=== PATIENT | male | born 1945 | race Caucasian/White ===

== ENCOUNTER → 2020-05-04 | Outpatient (CLI) | payer MEDICARE | END | disposition home or self-care (01) | LOC: LAB SHORT 13:39 → LAB 13:39 | DX: L02.91 Cutaneous abscess, unspecified (principal) | CPT/HCPCS: 87070; 87075; 87076; 87185; 87205 ==

== ENCOUNTER 2022-04-23 08:47 | Emergency (ER) | payer MEDICARE ==
[~2022-04-23] VITALS: Ht 182.9 cm; Wt 140.6 kg
[2022-04-23 10:16] LABS: BASOPHILS ABSOLUTE AUTO 0.06 K/mm3 (0.00-0.23); BASOPHILS PERCENT AUTO 1 % (0-2); EOSINOPHILS ABSOLUTE AUTO 0.19 K/mm3 (0.00-0.68); EOSINOPHILS PERCENT AUTO 3 % (0-6); Hematocrit 33.9 % (37.0-53.0); Hemoglobin 10.6 g/dL (13.5-17.5); IMMATURE GRAN ABSOLUTE AUTO 0.04 K/mm3 (0.00-0.10); IMMATURE GRAN PERCENT AUTO 1 % (0-1); LYMPHOCYTES ABSOLUTE AUTO 0.75 K/mm3 (0.84-5.20); LYMPHOCYTES PERCENT AUTO 11 % (21-46); MONOCYTES ABSOLUTE AUTO 0.42 K/mm3 (0.16-1.47); MONOCYTES PERCENT AUTO 6 % (4-13); Mean Corpuscular HGB Conc 31.3 g/dL (31.5-36.5); Mean Corpuscular Volume 99 fL (80-100); Mean Platelet Volume 10.9 fL (9.1-12.4); NEUTROPHILS ABSOLUTE AUTO 5.39 K/mm3 (1.96-9.15); NEUTROPHILS PERCENT AUTO 79 % (41-73); Platelet Count 267 K/mm3 (150-400); RDW Coefficient Variation 13.4 % (11.7-14.2); RDW Standard Deviation 48.4 fL (35.1-46.3); Red Blood Cell Count 3.42 M/mm3 (4.30-5.90); White Blood Cell Count 6.85 K/mm3 (4.00-11.30)
[2022-04-23 10:44] LABS: Albumin, Blood 3.4 g/dL (3.4-5.0); Albumin/Globulin Ratio 1.1 (0.8-1.8); Bilirubin, Total 0.4 mg/dL (0.1-1.0); Bun/Creatinine Ratio 19.2 (12.0-20.0); Calcium, Blood 8.8 mg/dL (8.5-10.1); Creatinine, Blood 1.67 mg/dL (0.60-1.20); Globulin, Blood 3.2 g/dL (2.2-4.0); Potassium, Blood 5.3 mmol/L (3.5-5.5); Thyroid Stimulating Hormone 1.87 uIU/mL (0.360-4.800); Total Protein, Blood 6.6 g/dL (6.4-8.2)
[2022-04-23] MEDS ORDERED: METFORMIN HCL500 M3 PO (11:35)
[2022-04-23] MEDS ORDERED: SULFAMETHOXAZO1 EAC1 PO (11:36)
[2022-04-23] MEDS ORDERED: FUROSEMIDE40 MG PO (11:36)
[2022-04-23] MEDS ORDERED: POTASSIUM CHLORIDE E (11:36)
[2022-04-23] MEDS ORDERED: TAMSULOSIN HCL0.4 M1 PO (11:36)
[2022-04-23] MEDS ORDERED: GLIMEPIRIDE4 MG PO (11:36)
[2022-04-23] MEDS ORDERED: LOSA25 PO (11:37)
== END 2022-04-23 11:57 | disposition home or self-care (01) ==
LOC: ER 08:47
PROVIDERS: Emergency Medicine
DX: R06.09 Other forms of dyspnea (principal); R53.83 Other fatigue; I10 Essential (primary) hypertension; E11.9 Type 2 diabetes mellitus without complications; Z79.899 Other long term (current) drug therapy
CPT/HCPCS: 36415; 71045; 80053; 83880; 84443; 84484; 85025; 93005; 93010

== ENCOUNTER 2022-05-31 11:50 | Inpatient (IN) | payer MEDICARE ==
[~2022-05-31] VITALS: Ht 182.9 cm; Wt 145.1 kg
[~2022-05-31 11:50] MED LIST: FUROSEMIDE40 MG PO; GLIMEPIRIDE4 MG PO; K-Dur20 MEQ PO; LOSA50 PO; METF500 PO; SULFAMETHOXAZO1 EAC1 PO; TAMSULOSIN HCL0.4 M1 PO
[2022-05-31 12:49] LABS: BASOPHILS ABSOLUTE AUTO 0.07 K/mm3 (0.00-0.23); BASOPHILS PERCENT AUTO 1 % (0-2); EOSINOPHILS ABSOLUTE AUTO 0.23 K/mm3 (0.00-0.68); EOSINOPHILS PERCENT AUTO 4 % (0-6); Hematocrit 31.8 % (37.0-53.0); IMMATURE GRAN ABSOLUTE AUTO 0.03 K/mm3 (0.00-0.10); IMMATURE GRAN PERCENT AUTO 1 % (0-1); LYMPHOCYTES ABSOLUTE AUTO 0.75 K/mm3 (0.84-5.20); LYMPHOCYTES PERCENT AUTO 13 % (21-46); MONOCYTES ABSOLUTE AUTO 0.38 K/mm3 (0.16-1.47); MONOCYTES PERCENT AUTO 7 % (4-13); Mean Corpuscular HGB 31.6 pg (26.0-34.0); Mean Corpuscular HGB Conc 31.4 g/dL (31.5-36.5); Mean Corpuscular Volume 101 fL (80-100); Mean Platelet Volume 10.9 fL (9.1-12.4); NEUTROPHILS ABSOLUTE AUTO 4.32 K/mm3 (1.96-9.15); NEUTROPHILS PERCENT AUTO 75 % (41-73); Platelet Count 249 K/mm3 (150-400); RDW Coefficient Variation 15.4 % (11.7-14.2); RDW Standard Deviation 57.7 fL (35.1-46.3); Red Blood Cell Count 3.16 M/mm3 (4.30-5.90); White Blood Cell Count 5.78 K/mm3 (4.00-11.30)
[2022-05-31 13:10] LABS: Albumin, Blood 3.2 g/dL (3.4-5.0); Bilirubin, Total 0.4 mg/dL (0.1-1.0); Bun/Creatinine Ratio 21.7 (12.0-20.0); Calcium, Blood 8.5 mg/dL (8.5-10.1); Creatinine, Blood 1.15 mg/dL (0.60-1.20); Globulin, Blood 3.3 g/dL (2.2-4.0); Potassium, Blood 4.5 mmol/L (3.5-5.5); Total Protein, Blood 6.5 g/dL (6.4-8.2)
--- NOTE | 2022-06-01 02:43 | NUR ---
PT ARRIVED TO MEDICAL FLOOR BY ESCORT AT 2041. RA. SALINE LOCKED RAC. NO LLE WITH SWELLING AND EDEMA. SLIGHTLY WARM TO TOUCH. DENIES C/O PAIN. NO OTHER WOUNDS NOTED. A&Ox4. SELF-TRANSFERED TO BED. NO CONCERNS.
[2022-06-01 07:01] LABS: BASOPHILS ABSOLUTE AUTO 0.07 K/mm3 (0.00-0.23); BASOPHILS PERCENT AUTO 1 % (0-2); EOSINOPHILS ABSOLUTE AUTO 0.23 K/mm3 (0.00-0.68); EOSINOPHILS PERCENT AUTO 4 % (0-6); Hematocrit 30.2 % (37.0-53.0); Hemoglobin 9.5 g/dL (13.5-17.5); IMMATURE GRAN ABSOLUTE AUTO 0.01 K/mm3 (0.00-0.10); IMMATURE GRAN PERCENT AUTO 0 % (0-1); LYMPHOCYTES ABSOLUTE AUTO 0.95 K/mm3 (0.84-5.20); LYMPHOCYTES PERCENT AUTO 17 % (21-46); MONOCYTES ABSOLUTE AUTO 0.47 K/mm3 (0.16-1.47); MONOCYTES PERCENT AUTO 8 % (4-13); Mean Corpuscular HGB 31.3 pg (26.0-34.0); Mean Corpuscular HGB Conc 31.5 g/dL (31.5-36.5); Mean Corpuscular Volume 99 fL (80-100); Mean Platelet Volume 10.9 fL (9.1-12.4); NEUTROPHILS ABSOLUTE AUTO 4.01 K/mm3 (1.96-9.15); NEUTROPHILS PERCENT AUTO 70 % (41-73); Platelet Count 236 K/mm3 (150-400); RDW Coefficient Variation 15.2 % (11.7-14.2); RDW Standard Deviation 55.3 fL (35.1-46.3); Red Blood Cell Count 3.04 M/mm3 (4.30-5.90); White Blood Cell Count 5.74 K/mm3 (4.00-11.30)
[2022-06-01 07:36] LABS: Calcium, Blood 8.6 mg/dL (8.5-10.1)
--- NOTE | 2022-06-01 07:45 | NUR ---
FILTER TANK TENDER SUMMARY: A&Ox4. PLEASANT AND COOPERATIVE WITH CARE. CALLS APPROPRIATELY AND IS ABLE TO COMMUNICATE NEEDS EFFECTIVELY. SELF-AMBULATES TO BATHROOM AFTER CALLING TO NOTIFY STAFF HE IS GETTING UP OUT OF HIS BED. LLE RED AND SKIN APPEARS TIGHT AND EDEMATOUS. IV ABx ANCEF STARTED LAST NIGHT. WILL REPORT TO ONCOMING RN.
--- NOTE | 2022-06-01 20:27 | NUR ---
SUMMARY- PT A/O X4. SBA TO BATHROOM. LASIX THIS AM WITH LG AMOUNTS OF URINE THIS AM, VOIDING ABOUT EVERY 30 MINUTES. PT'S LUNG CRACKLES BIBASILAR. LE EDEMA +3, TAUGHT, MOST OF L LEG IS RED AND INCREASED WARMPTH, ALSO NOTED REDNESS LOWER R LEG. PT STATES LESS THAN PREVIOUS DAYS. LEGS NOT MARDED MOST OF THE CIRCUMFERENCE IS RED ON L. PT TOLERTATING FOOD AND FLUID. USES URINAL WITH OCC STRESS INCONT. HOPEFUL TO GO HOME TOMORROW. SUGARS IN 200'S, COVERED WITH SS HUMALOG. REPORTED TO NOC RN.
--- NOTE | 2022-06-01 21:32 | NUR ---
PT CALLED REQUESTING SLEEP MED. C/O DIFFICULTY SLEEPING R/T "LEGS FREEZING COLD" TO WHICH HE ATTRIBUTES POOR CIRCULATION. WHEN ASKED WHAT HE DOES AT HOME THAT MAKES HIM MORE COMFORTABLE, HE STATES HE HAS A SPACE HEATER ON HIS LEGS AT HOME AND A COFFEE CAN NEXT TO THE BED FOR VOIDING. CURRENTLY USING WIDE-MOUTH URINAL. OFFERED BSC BUT DECLINED, STATING IT IS NOT WORTH THE TROUBLE. LET HIM KNOW I WOULD TRY CONTACTING HOSPITALIST FOR SOMETHING TO HELP WITH PAIN AND SLEEP. HE DOES STATE HE HAS IMAGING FOR HIS LEGS LATER THIS MONTH TO EVALUATE THE CIRCULATION IN HIS LEGS.
[2022-06-02 05:38] LABS: Hematocrit 32.7 % (37.0-53.0); Hemoglobin 10.1 g/dL (13.5-17.5); Mean Corpuscular HGB 31.1 pg (26.0-34.0); Mean Corpuscular HGB Conc 30.9 g/dL (31.5-36.5); Mean Corpuscular Volume 101 fL (80-100); Mean Platelet Volume 10.7 fL (9.1-12.4); Platelet Count 229 K/mm3 (150-400); RDW Coefficient Variation 15.1 % (11.7-14.2); Red Blood Cell Count 3.25 M/mm3 (4.30-5.90); White Blood Cell Count 5.14 K/mm3 (4.00-11.30)
[2022-06-02 06:47] LABS: Bilirubin, Total 0.4 mg/dL (0.1-1.0); Bun/Creatinine Ratio 19.8 (12.0-20.0); Calcium, Blood 8.6 mg/dL (8.5-10.1); Creatinine, Blood 1.06 mg/dL (0.60-1.20); Globulin, Blood 3.1 g/dL (2.2-4.0); Total Protein, Blood 6.1 g/dL (6.4-8.2)
--- NOTE | 2022-06-02 07:39 | NUR ---
CHARGE RN SUMMARY: A&Ox4. PLEASANT AND COOPERATIVE WITH CARE. CALLS APPROPRIATELY AND IS ABLE TO COMMUNICATE NEEDS. AMBULATES INDEPENDENTLY WITHIN ROOM TO BATHROOM, BUT BEDSIDE COMMODE WAS PLACED BESIDE BED FOR EASE OF ACCESSIBILITY DUE TO FREQUENCY OF URINATION. GABAPENTIN 300MG AND TAC OINTMENT ADMINISTERED LAST NIGHT WITH LITTLE RELIEF FOR LLE DISCOMFORT. ADMINISTERED 2.5MG DIAZEPAM AND 0.25MG MIRAPEX PER DR MYERS AND PATIENT HAS BEEN RESTING SINCE ADMINISTRATION. THIS MORNING HE REPORTS FEELING GROGGY BUT HAPPY HE WAS FINALLY ABLE TO SLEEP. LABS DRAWN. WILL REPORT TO ONCOMING RN.
--- NOTE | 2022-06-02 17:34 | NUR ---
SHIFT SUMMARY: PATIENT A&OX4. PLEASANT AND COOPERATIVE WITH CARE. USES CALL LIGHT APPROPRIATELY AND ABLE TO ADVOCATE FOR HIS NEEDS. PATIENT DENIES CP/CHEST DISCOMFORT. LUNGS CLEAR T/O TO AUSCULTATION. DENIES SOB, RA WITH SPO2 RANGES 92-99% THIS SHIFT. PLUS 3 DEEP EDEMA AND VERY TIGHT TO BLE. BLE HAS BEEN ELEVATED ON PILLOWS T/O THIS SHIFT. DENIES PAIN. RECEIVED SCHEDULED LASIX AND ANTIBIOTICS. PATIENT AMBULATES TO BATHROOM WITH SBA AND DOES NOT USE ASSISTIVE DEVICE. IV TO L AC SALINE LOCKED. VITAL SIGNS REVIEWED. CALL LIGHT IN REACH
--- NOTE | 2022-06-02 19:50 | NUR ---
THE PATIENT IS A 77 YEAR-OLD MALE WITH A DIAGNOSIS OF LLE CELLULITS. A&OX4. PATIENT EFFECTIVELY COMMUNICATES NEEDS. CALL LIGHT WITHIN REACH. BED LOW AND LOCKED. VSS. PATIENT DENIES PAIN. NO ACUTE CONCERNS AT THIS TIME. WILL CONTINUE TO CLOSELY MONITOR.
[2022-06-03] MEDS ORDERED: Simvastatin40 MG PO (02:57)
[2022-06-03] MEDS ORDERED: PIOGLITAZONE HC15 MG PO (02:57)
--- NOTE | 2022-06-03 03:40 | NUR ---
ASSISTANT COUNTY ENGINEER SUMMARY THE PATIENT IS A 77 YEAR-OLD MALE WITH A DIAGNOSIS OF LLE CELLULITIS. A&OX4. PATIENT EFFECTIVELY COMMUNICATES NEEDS. CALL LIGHT WITHIN REACH. BED LOW AND LOCKED. STAND-BY ASSIST. VSS. RR EVEN AND UNLABORED ON RA. INTERMITTENT PRODUCTIVE COUGH NOTED. LEFT AC IV. PATIENT TOLERATING IV ABO THERAPY. PATIENT DENIES PAIN. NO ACUTE SIGNS OR SYMPTOMS. WILL CONTINUE TO CLOSELY MONITOR.
[2022-06-03 06:50] LABS: Bun/Creatinine Ratio 18.1 (12.0-20.0); Calcium, Blood 8.7 mg/dL (8.5-10.1); Creatinine, Blood 0.99 mg/dL (0.60-1.20); Potassium, Blood 3.9 mmol/L (3.5-5.5)
[2022-06-03] MEDS ORDERED: VISBIOME 112.51 EACH PO (13:57)
[2022-06-03] MEDS ORDERED: CEFTRIAXONE2 G1 IV (13:58)
--- NOTE | 2022-06-03 15:11 | NUR ---
SHIFT/DISCHARGE SUMMARY: PATIENT A&OX4. PLEASANT AND COOPERATIVE WITH CARE. USES CALL LIGHT APPROPRIATELY AND ABLE TO ADVOCATE FOR HIS NEEDS. PATIENT AMBULATES TO BATHROOM WITH SBA AND USES URINAL AT BEDSIDE INDEPENDENTLY. NO NEW CHANGES THIS SHIFT. PATIENT HAS NON-PITTING EDEMA TO BLE WITH REDNESS T/O. PATIENT RECEIVED SCHEDULED ANTIBIOTICS AND LASIX THIS SHIFT. DENIES PAIN TO BLE. DENIES CP/CHEST DISCOMFORT. LUNGS CLEAR T/O. PATIENT ON RA WITH SPO2 ABOVE 90%. DENIES SOB. PATIENT BS RANGES FROM 160'S-250'S. RECEIVED INSULIN COVERAGE THIS SHIFT. VITAL SIGNS REVIEWED. IV TO L AC WAS DC'D. PATIENT DISCHARGE HOME. DISCHARGE INSTRUCTIONS PACKET GIVEN TO PATIENT. EDUCATE PATIENT REGARDING ADMITTING DX, S/S, TX AND NEW PRESCRIBED MEDICATION. PATIENT STATED UNDERSTANDING AND NO FURTHER QUESTIONS. RX WAS FAXED TO PATIENT PREFERRED PHARMACY ([facility] IN [place]). GORDY FROM [facility] SPOKE TO THIS RN AND ARRANGED THE FIRST SCHEDULE TREATMENT OF IV ANTIBIOTICS. CONSULTED PATIENT WITH THE AVAILABILITY SCHEDULED. PATIENT AGREED TO SCHEDULED THE FIRST TREATMENT TOMORROW 06/04/22 AT 1400 AT [facility]. ALL PATIENT PERSONAL BELONGINGS WERE SENT HOME WITH THE PATIENT. PATIENT WAS TRANSPORTED VIA WHEELCHAIR BY [employer]ON[employer] INSPECTOR STAFF FRANCISCO JAVIER WADSWORTH TO PATIENT ENTRANCE. PER FRANCISCO JAVIER SHE ASK SECURITY TO ESCORT PATIENT TO THE PARKING LOT WERE THE PATIENT PRIVATE VEHICLE WAS Club W. SECURITY AGREED TO DO SO.
== END 2022-06-03 15:11 | disposition home or self-care (01) | DRG 638 ==
LOC: ER 11:50 → MEDS 17:55 → ERHOLD 17:55 → MEDS 22:11
PROVIDERS: Family Medicine; Physician Assistant; ADMIT Hospitalist
DX: E11.628 Type 2 diabetes mellitus with other skin complications (principal); L03.115 Cellulitis of right lower limb; L03.116 Cellulitis of left lower limb; N40.0 Benign prostatic hyperplasia without lower urinary tract symptoms; I10 Essential (primary) hypertension; D63.8 Anemia in other chronic diseases classified elsewhere; D50.9 Iron deficiency anemia, unspecified; Z79.899 Other long term (current) drug therapy; Z79.84 Long term (current) use of oral hypoglycemic drugs; Z79.01 Long term (current) use of anticoagulants; Z98.890 Other specified postprocedural states; Z87.891 Personal history of nicotine dependence
CPT/HCPCS: 36415; 71046; 80048; 80053; 82947; 83605; 83880; 84484; 85025; 85027; 87040; 93005; 93010; 96361; 96374; 99285-25; A9270; J0690; J1650; J1815; J1940; J3360; J7030

== ENCOUNTER 2022-06-04 01:26 | Day surgery (SDC) | payer MEDICARE ==
[~2022-06-04 01:26] MED LIST changes: +CEFTRIAXONE2 G1 IV; -LOSA50 PO; +LOSARTAN POTAS100 MG PO; +PIOGLITAZONE HC15 MG PO; +Simvastatin40 MG PO; +VISBIOME 112.51 EACH PO
== END 2022-06-04 15:15 | disposition home or self-care (01) ==
LOC: ATC 01:26
DX: L03.116 Cellulitis of left lower limb (principal); L03.115 Cellulitis of right lower limb; I10 Essential (primary) hypertension; E11.9 Type 2 diabetes mellitus without complications; Z87.891 Personal history of nicotine dependence
CPT/HCPCS: 96374; J0696

== ENCOUNTER 2022-06-05 06:03 | Day surgery (SDC) | payer MEDICARE | END 2022-06-05 14:16 | disposition home or self-care (01) | LOC: ATC 06:03 | DX: L03.116 Cellulitis of left lower limb (principal); E11.9 Type 2 diabetes mellitus without complications; I10 Essential (primary) hypertension; D64.9 Anemia, unspecified; Z87.891 Personal history of nicotine dependence; Z79.84 Long term (current) use of oral hypoglycemic drugs; L03.115 Cellulitis of right lower limb | CPT/HCPCS: 96374; J0696 ==

== ENCOUNTER 2022-06-07 11:48 | Inpatient (IN) | payer MEDICARE ==
[~2022-06-07] VITALS: Ht 172.7 cm; Wt 134.2 kg
[~2022-06-07 11:48] MED LIST changes: +LOSA50 PO; -LOSARTAN POTAS100 MG PO
[2022-06-07 12:25] LABS: BASOPHILS ABSOLUTE AUTO 0.02 K/mm3 (0.00-0.23); BASOPHILS PERCENT AUTO 0 % (0-2); EOSINOPHILS ABSOLUTE AUTO 0.01 K/mm3 (0.00-0.68); EOSINOPHILS PERCENT AUTO 0 % (0-6); Hematocrit 34.5 % (37.0-53.0); Hemoglobin 10.9 g/dL (13.5-17.5); IMMATURE GRAN ABSOLUTE AUTO 0.02 K/mm3 (0.00-0.10); IMMATURE GRAN PERCENT AUTO 0 % (0-1); LYMPHOCYTES ABSOLUTE AUTO 0.58 K/mm3 (0.84-5.20); LYMPHOCYTES PERCENT AUTO 12 % (21-46); MONOCYTES ABSOLUTE AUTO 0.38 K/mm3 (0.16-1.47); MONOCYTES PERCENT AUTO 8 % (4-13); Mean Corpuscular HGB 31.2 pg (26.0-34.0); Mean Corpuscular HGB Conc 31.6 g/dL (31.5-36.5); Mean Corpuscular Volume 99 fL (80-100); Mean Platelet Volume 10.8 fL (9.1-12.4); NEUTROPHILS ABSOLUTE AUTO 3.89 K/mm3 (1.96-9.15); NEUTROPHILS PERCENT AUTO 79 % (41-73); Platelet Count 244 K/mm3 (150-400); RDW Coefficient Variation 14.3 % (11.7-14.2); RDW Standard Deviation 52.2 fL (35.1-46.3); Red Blood Cell Count 3.49 M/mm3 (4.30-5.90)
[2022-06-07 12:39] LABS: Calcium, Blood 8.3 mg/dL (8.5-10.1); Creatinine, Blood 1.32 mg/dL (0.60-1.20); Potassium, Blood 3.7 mmol/L (3.5-5.5)
[2022-06-07 13:27] LABS: Source, Urine Clean Catch
[2022-06-07 13:32] LABS: Appearance, Urine Clear (Clear); Bilirubin, Urine Neg (Neg); Blood, Urine 3+ (Neg); Color, Urine Yellow (P-Yellow); Glucose Qualitative, Urine Neg (Neg); Ketones, Urine Neg (Neg); Leukocyte Esterase, Urine Neg (Neg); Nitrite, Urine Neg (Neg); Protein, Urine 2+ (Neg); Specific Gravity, Urine 1.025 (1.003-1.022); Urobilinogen, Urine NORM (Normal)
[2022-06-07 14:09] LABS: Influenza B, PCR NEGATIVE (NEGATIVE); Resp Syncytial Virus, PCR NEGATIVE (NEGATIVE); SARS-Cov-2 (COVID-19) PCR, MMC NEGATIVE (NEGATIVE)
[2022-06-07 14:10] LABS: Influenza A, PCR POSITIVE (NEGATIVE)
[2022-06-07 14:23] LABS: Red Blood Cells, Urine 0-2 /hpf (0-2); Squamous Epithelial Cells Rare /hpf (Few)
[2022-06-07 14:24] LABS: Bacteria Few /hpf
[2022-06-07 14:25] LABS: Mucus Light (0-Heavy)
[2022-06-07 14:35] LABS: U Amphetamine Screen Not Detected; U Barbituate Screen Not Detected; U Benzodiazapine Screen DETECTED; U Buprenorphine Screen Not Detected; U Cannabinoids Screen Not Detected; U Cocaine Screen Not Detected; U Methadone Screen Not Detected; U Methamphetamine Screen Not Detected; U Opiates Screen Not Detected; U Oxycodone Screen Not Detected; U Phencyclidine Screen Not Detected; U Propoxyphene Screen Not Detected
[2022-06-07 16:06] LABS: Base Excess Venous 0.8 mmol/L; Bicarbonate Venous 24.8 mmol/L (24.0-30.0); pH Blood Venous 7.34 (7.34-7.37)
[2022-06-08 05:52] LABS: BASOPHILS ABSOLUTE AUTO 0.01 K/mm3 (0.00-0.23); BASOPHILS PERCENT AUTO 0 % (0-2); EOSINOPHILS PERCENT AUTO 0 % (0-6); Hematocrit 33.9 % (37.0-53.0); Hemoglobin 10.4 g/dL (13.5-17.5); IMMATURE GRAN ABSOLUTE AUTO 0.04 K/mm3 (0.00-0.10); IMMATURE GRAN PERCENT AUTO 1 % (0-1); LYMPHOCYTES ABSOLUTE AUTO 0.25 K/mm3 (0.84-5.20); LYMPHOCYTES PERCENT AUTO 7 % (21-46); MONOCYTES ABSOLUTE AUTO 0.04 K/mm3 (0.16-1.47); MONOCYTES PERCENT AUTO 1 % (4-13); Mean Corpuscular HGB 30.8 pg (26.0-34.0); Mean Corpuscular HGB Conc 30.7 g/dL (31.5-36.5); Mean Corpuscular Volume 100 fL (80-100); NEUTROPHILS ABSOLUTE AUTO 3.46 K/mm3 (1.96-9.15); NEUTROPHILS PERCENT AUTO 91 % (41-73); Platelet Count 232 K/mm3 (150-400); RDW Coefficient Variation 14.2 % (11.7-14.2); RDW Standard Deviation 51.8 fL (35.1-46.3); Red Blood Cell Count 3.38 M/mm3 (4.30-5.90)
[2022-06-08 06:15] LABS: Albumin, Blood 3.1 g/dL (3.4-5.0); Albumin/Globulin Ratio 0.9 (0.8-1.8); Bilirubin, Total 0.3 mg/dL (0.1-1.0); Bun/Creatinine Ratio 28.3 (12.0-20.0); Calcium, Blood 8.5 mg/dL (8.5-10.1); Creatinine, Blood 1.2 mg/dL (0.60-1.20); Globulin, Blood 3.4 g/dL (2.2-4.0); Potassium, Blood 5.4 mmol/L (3.5-5.5); Total Protein, Blood 6.5 g/dL (6.4-8.2)
--- NOTE | 2022-06-08 07:26 | NUR ---
Shift Summary Pt arrived to the unit at approx 2030 for acute resp failure. Pt was on 5L O2 via oximizer to maintane O2 sats > 90. Sats frequently dip to mid 80's during sleep with O2. Pt very SoB, unable to speak more than 1 or 2 words at a time and is difficult to understand. Called RT at approx 2200 for PRN treatment which helped a little. Pt placed in isolation for positive influenza. Incont of urine and bowel, had loose tarry stool. Rcvd LR @100, and rcvd 60 mg IV Solu-Medrol. Pt ran sinus tach at 105 t/o the night. Pleasant and cooperative with care, no acute events.
--- NOTE | 2022-06-08 08:00 | NUR ---
pt sitting up in the chair for breakfast, is impulsive, a/ox3, pleasant and cooperative with care, follows commands well, denies pain, lungs are course rhonchi t/o, denies productive cough, currently on 5 liters 02 via oxymizer, hrr, tele in place running sr to st per monitor, see strip, iv sites are clear and patent, btx4, abd large soft nontender, voids without diff, skin c/w/d, except b/l le are red, maew, needs a walker to ambulate, diana, call light in reach.
--- NOTE | 2022-06-08 18:16 | NUR ---
pt sits on the side of the bed and in the chair, no acute changes, get sob with activity, sats drop, call light in reach.
--- NOTE | 2022-06-08 21:07 | NUR ---
2100 HRS PANTERA WAS CALLED ABOUT PT CBG. PANTERA ORDERED TO GIVE NIGHT TIME INSULIN DOSE.
--- NOTE | 2022-06-09 00:59 | NUR ---
0100 PT VERY ANXIOUS AND RESTLESS. DR SONI CALLED AND ORDERED ATARX FOR PT. WCTM.
--- NOTE | 2022-06-09 05:58 | NUR ---
SUMMARY SHIFT PROGRESSED PT BECAME MORE CONFUSED. PT ALSO BECAME VERY IMPULSIVE AND WAS TRYING TO GET OUT OF BED WITHOUT ASSISTANCE. PT ALSO BECAME VERY ANXIOUS AND AGITATED. PT WAS TX PER EMAR WITH SOME RELIEF. PT HAD INCREASED DIFFICULTY USING THE URINAL. A CONDOM CATH WAS PLACED ON PT. PT BECOMES SOB WITH EXERTION. PT REMAINS ON HIGH FLOW O2. PT CURRENTLY SITTING IN CHAIR AND IN NO DISTRESS. CONFUSION IS IMPROVING.
[2022-06-09 06:51] LABS: BASOPHILS PERCENT AUTO 0 % (0-2); EOSINOPHILS PERCENT AUTO 0 % (0-6); Hematocrit 30.5 % (37.0-53.0); Hemoglobin 9.6 g/dL (13.5-17.5); IMMATURE GRAN ABSOLUTE AUTO 0.02 K/mm3 (0.00-0.10); IMMATURE GRAN PERCENT AUTO 0 % (0-1); LYMPHOCYTES ABSOLUTE AUTO 0.71 K/mm3 (0.84-5.20); LYMPHOCYTES PERCENT AUTO 14 % (21-46); MONOCYTES ABSOLUTE AUTO 0.52 K/mm3 (0.16-1.47); MONOCYTES PERCENT AUTO 10 % (4-13); Mean Corpuscular HGB 30.5 pg (26.0-34.0); Mean Corpuscular HGB Conc 31.5 g/dL (31.5-36.5); Mean Corpuscular Volume 97 fL (80-100); NEUTROPHILS ABSOLUTE AUTO 3.82 K/mm3 (1.96-9.15); NEUTROPHILS PERCENT AUTO 75 % (41-73); Platelet Count 240 K/mm3 (150-400); RDW Coefficient Variation 13.9 % (11.7-14.2); RDW Standard Deviation 49.5 fL (35.1-46.3); Red Blood Cell Count 3.15 M/mm3 (4.30-5.90); White Blood Cell Count 5.07 K/mm3 (4.00-11.30)
[2022-06-09 07:18] LABS: Albumin/Globulin Ratio 0.9 (0.8-1.8); Bilirubin, Total 0.4 mg/dL (0.1-1.0); Bun/Creatinine Ratio 36.9 (12.0-20.0); Calcium, Blood 8.7 mg/dL (8.5-10.1); Creatinine, Blood 1.22 mg/dL (0.60-1.20); Globulin, Blood 3.4 g/dL (2.2-4.0); Potassium, Blood 5.2 mmol/L (3.5-5.5); Total Protein, Blood 6.4 g/dL (6.4-8.2)
--- NOTE | 2022-06-09 07:23 | NUR ---
pt laying in bed watching tv, a/ox3, pleasant and cooperative with care, when asked how he slept last night he replies he doesn't know, no complaint this am, he is very impulsive, and has a hard time following directions, lungs are course t/o, resp even and unlabored, no cough noted, or reported, hrr, distant sounds, iv to rfa, site is clear and patent, +1 edema noted to b/l le, ppp+1, cap refill <3sec, vs stable, afebrile, btx4, abd round soft nontender, voids in urial at times, briefs in place, but he removes everything and ends up voiding in the bed or floor, skin c/w/d, clarice, uses a walker to ambulate with one person assist, diana, call light in reach.
--- NOTE | 2022-06-09 14:06 | NUR ---
pt is irritable this afternoon, talking about going home, is frequently getting up and down, call light in reach.
--- NOTE | 2022-06-09 18:11 | NUR ---
pt has been more irritable today, asked Dr. Burrows to come see him as he is confused about having a condom cath placed last night, and is insisting on going home, came out in the musa uncovered, doesn't seem to be cognisant of his lines, will be going home tomorrow per Dr. will be moving him to the scu for tonight as he continually stands and tries to walk around, and voids on the floor. call light in reach.
--- NOTE | 2022-06-09 19:50 | NUR ---
patient arrived to room 350 via bed from room 337. Report received from Elli Strickland RN. Pt has been out of bed 3 times in first 15 min. Easily redirected, but forgets immediately. Spoke with resident, Dr. Arevalo. He will put in order for Seroquel.
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
[2022-06-10 05:31] LABS: Hematocrit 29.5 % (37.0-53.0); Hemoglobin 9.6 g/dL (13.5-17.5); Mean Corpuscular HGB Conc 32.5 g/dL (31.5-36.5); Mean Corpuscular Volume 95 fL (80-100); Mean Platelet Volume 10.8 fL (9.1-12.4); Platelet Count 234 K/mm3 (150-400); RDW Coefficient Variation 13.8 % (11.7-14.2); RDW Standard Deviation 48.5 fL (35.1-46.3); White Blood Cell Count 6.81 K/mm3 (4.00-11.30)
[2022-06-10 05:51] LABS: Bilirubin, Total 0.4 mg/dL (0.1-1.0); Bun/Creatinine Ratio 32.4 (12.0-20.0); Calcium, Blood 8.8 mg/dL (8.5-10.1); Creatinine, Blood 1.08 mg/dL (0.60-1.20); Globulin, Blood 3.1 g/dL (2.2-4.0); Potassium, Blood 4.1 mmol/L (3.5-5.5); Total Protein, Blood 6.1 g/dL (6.4-8.2)
--- NOTE | 2022-06-10 06:38 | NUR ---
PATIENT TRANSFERED INTO THE SPECIAL [facility]ARE UNIT ROOM 350 EARLY IN THE EVENING. HE IS ALERT AND ORIENTED TO SELF AND PLACE, BUT UNAWARE OF SITUATION. HE ARRIVED COMBATIVE AND AGITATED ATTEMPTING EVERY 2-3 MINUTES TO CLIMB OVER THE RAILS. HOSPITALIST WAS NOTIFIED, AND LOW DOSE OF HALDOL WAS GIVEN IM WITHOUT ANY EFFECT. NEXT, 4 RAILS AND SELAM VEST, AND FINALLY SOFT WRIST RESTRAINTS AND A SLIGHTLY LARGER DOSE OF IM HALDOL WERE GIVEN WHICH ALLOWED THE PATIENT TO SLEEP A FEW HOURS. WHEN HE WOKE, HE BEGAN AGAIN TO ESCALATE, AND 1MG HALDOL WAS GIVEN WITH GOOD EFFECT. WRIST RESTRAINTS WERE REMOVED AT [phone]
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
--- NOTE | 2022-06-11 04:07 | NUR ---
SHIFT SUMMARY NO OVERNIGHT CHANGES IN PT CONDITION. REMAINS ON 2LO2, MOIST COUGH. PT VOIDING MULTIPLE TIMES THROUGHOUT NIGHT, SITTING UP AT BEDSIDE TO VOID. USING CALL LIGHT CORRECTLY, NO BEHAVIORAL ISSUES. CALL LIGHT IN REACH, ABLE TO MAKE NEEDS KNOWN. BED ALARM ON
[2022-06-11 07:18] LABS: Hematocrit 28.9 % (37.0-53.0); Hemoglobin 9.3 g/dL (13.5-17.5); Mean Corpuscular HGB 30.4 pg (26.0-34.0); Mean Corpuscular HGB Conc 32.2 g/dL (31.5-36.5); Mean Corpuscular Volume 94 fL (80-100); Mean Platelet Volume 10.5 fL (9.1-12.4); Platelet Count 207 K/mm3 (150-400); RDW Coefficient Variation 13.5 % (11.7-14.2); RDW Standard Deviation 46.9 fL (35.1-46.3); Red Blood Cell Count 3.06 M/mm3 (4.30-5.90); White Blood Cell Count 5.09 K/mm3 (4.00-11.30)
[2022-06-11 07:45] LABS: Albumin, Blood 2.7 g/dL (3.4-5.0); Bilirubin, Total 0.5 mg/dL (0.1-1.0); Bun/Creatinine Ratio 23.5 (12.0-20.0); Calcium, Blood 8.5 mg/dL (8.5-10.1); Creatinine, Blood 0.98 mg/dL (0.60-1.20); Globulin, Blood 2.8 g/dL (2.2-4.0); Potassium, Blood 3.9 mmol/L (3.5-5.5); Total Protein, Blood 5.5 g/dL (6.4-8.2)
[2022-06-11] MEDS ORDERED: ALBU2.5V5 INH ×2 (15:36→16:23)
[2022-06-11] MEDS ORDERED: PRED20 PO (15:37)
[2022-06-11] MEDS ORDERED: OSEL75CA PO ×2 (15:38→16:24)
--- NOTE | 2022-06-11 17:48 | NUR ---
DISCHARGE NOTE PT DISCHARGED TO HOME WITH HOME HEALTH. [facility] WAS CALLED FOR TRANSPORT, HE WAS TAKEN TO THE EXIT VIA WHEELCHAIR. HIS IV WAS REMOVED SUCCESSFULLY BY RN. EDUCATION WAS PROVIDED AND MEDICATIONS FAXED TO THE PHARMACY OF HIS CHOICE.
== END 2022-06-11 17:46 | disposition home health service (06) | DRG 871 ==
LOC: ER 11:48 → ERHOLD 11:49 → MEDS 22:05
PROVIDERS: Family Medicine; Student in an Organized Health Care Education/Training Program; ADMIT Hospitalist
DX: A41.9 Sepsis, unspecified organism (principal); G92.8 Other toxic encephalopathy; J10.08 Influenza due to other identified influenza virus with other specified pneumonia; J96.01 Acute respiratory failure with hypoxia; J96.02 Acute respiratory failure with hypercapnia; J12.9 Viral pneumonia, unspecified; N17.9 Acute kidney failure, unspecified; L03.116 Cellulitis of left lower limb; I10 Essential (primary) hypertension; E78.5 Hyperlipidemia, unspecified; E11.649 Type 2 diabetes mellitus with hypoglycemia without coma; E86.0 Dehydration; N40.0 Benign prostatic hyperplasia without lower urinary tract symptoms; W06.XXXA Fall from bed, initial encounter; Z20.822 Contact with and (suspected) exposure to COVID-19; Z79.899 Other long term (current) drug therapy; Z79.84 Long term (current) use of oral hypoglycemic drugs; Z79.01 Long term (current) use of anticoagulants; Z79.2 Long term (current) use of antibiotics
CPT/HCPCS: 0241U; 36415; 71045; 80048; 80053; 81001; 82803; 82947; 83605; 83880; 84145; 85025; 85027; 87040; 94640; 94664; 94762; 96361; 96372; 96374; 96375; 96376; 97110; 97116; 97162; 97166; 97530; 97535; 99285-25; A9270; G0378; J0456; J0696; J1630; J1650; J1815; J2930; J7030; J7042; J7050; J7120; J7512

== ENCOUNTER 2022-10-17 07:39 | Inpatient (IN) | payer MEDICARE, OTHER ==
[~2022-10-17] VITALS: Ht 182.9 cm; Wt 107.2 kg
[~2022-10-17 07:39] MED LIST changes: +ALBU2.5V5 INH; +OSEL75CA PO; +PRED20 PO
[2022-10-17 09:00] LABS: BASOPHILS ABSOLUTE AUTO 0.06 K/mm3 (0.00-0.23); BASOPHILS PERCENT AUTO 1 % (0-2); EOSINOPHILS ABSOLUTE AUTO 0.06 K/mm3 (0.00-0.68); EOSINOPHILS PERCENT AUTO 1 % (0-6); IMMATURE GRAN ABSOLUTE AUTO 0.04 K/mm3 (0.00-0.10); IMMATURE GRAN PERCENT AUTO 1 % (0-1); LYMPHOCYTES ABSOLUTE AUTO 0.99 K/mm3 (0.84-5.20); LYMPHOCYTES PERCENT AUTO 14 % (21-46); MONOCYTES ABSOLUTE AUTO 0.51 K/mm3 (0.16-1.47); MONOCYTES PERCENT AUTO 7 % (4-13); Mean Corpuscular HGB 30.8 pg (26.0-34.0); Mean Corpuscular HGB Conc 35.7 g/dL (31.5-36.5); Mean Corpuscular Volume 86 fL (80-100); Mean Platelet Volume 11.3 fL (9.1-12.4); NEUTROPHILS PERCENT AUTO 78 % (41-73); Platelet Count 221 K/mm3 (150-400); RDW Coefficient Variation 13.2 % (11.7-14.2); RDW Standard Deviation 41.7 fL (35.1-46.3); Red Blood Cell Count 4.87 M/mm3 (4.30-5.90); White Blood Cell Count 7.36 K/mm3 (4.00-11.30)
[2022-10-17 09:13] LABS: Source, Urine Clean Catch
[2022-10-17 09:20] LABS: Appearance, Urine Clear (Clear); Bilirubin, Urine Neg (Neg); Blood, Urine 1+ (Neg); Color, Urine Yellow (P-Yellow); Glucose Qualitative, Urine 4+ (Neg); Ketones, Urine 1+ (Neg); Leukocyte Esterase, Urine 2+ (Neg); Nitrite, Urine Neg (Neg); Protein, Urine 1+ (Neg); Urobilinogen, Urine NORM (Normal)
[2022-10-17 09:26] LABS: Bilirubin, Total 0.8 mg/dL (0.1-1.0); Bun/Creatinine Ratio 28.3 (12.0-20.0); Calcium, Blood 9.7 mg/dL (8.5-10.1); Creatinine, Blood 0.99 mg/dL (0.60-1.20); Globulin, Blood 4.2 g/dL (2.2-4.0); Potassium, Blood 4.3 mmol/L (3.5-5.5); Total Protein, Blood 8.2 g/dL (6.4-8.2)
[2022-10-17 09:28] LABS: Bacteria Rare /hpf; Mucus Light (0-Heavy); Red Blood Cells, Urine 0-2 /hpf (0-2); Squamous Epithelial Cells Few /hpf (Few)
[2022-10-17] MEDS ORDERED: SOAANZ20 M3 PO (09:44)
[2022-10-17] MEDS ORDERED: PREGABALIN50 MG PO (09:44)
[2022-10-17 14:18] VITALS: BP 93/82
[2022-10-17 15:27] VITALS: BP 120/68
[2022-10-17 15:40] VITALS: BP 120/68
--- NOTE | 2022-10-17 15:41 | NUR ---
PT ADMITED TO ROOM 360 AT 1355 VIA GURNEY TRANSPORT. ON ARRIVAL PT ABLE TO ANSWER QUESTIONS, BUT DOES NOT RESPOND WHEN ASKED WHY HE IS AT THE HOSPITAL. HE IS ABLE TO ANSWER HIS NAME , . PT DENIES PAIN ON ADMIT, HE IS RESTLESS. PT HAS NO SIGNS OF SKIN IMPAIRMENTS. NO SIGNS OF HEAD TRAUMA AT THIS TIME. PT TX TO BED VIA SLIDE. PT UNABLE TO BE ORIENTED TO ROOM, CALL LIGHT. CALL LIGHT WITHIN REACH, BED ALARM SET, IV VANCO CONTINUES TO RUN AT THIS TIME. PT DENIES NEEDS AT THIS TIME.
[2022-10-17 18:03] LABS: SARS-Cov-2 (COVID-19) PCR, MMC Negative (NEGATIVE)
--- NOTE | 2022-10-17 19:28 | NUR ---
TRANSFER SUMMARY: PT PRIYANKA TRANSFERRED OUT TO [facility]. REPORT GIVEN TO NEW [facility]AD RN SHAMEKA. ATTEMPTED TO GIVE REPORT TO [facility] RN BUT SHE WAS UNAVAILABLE. GAVE CALL BACK INFORMATION AND SHE WILL CALL AND GET REPORT FROM CLYDE LANCE RN.
[2022-10-17 19:43] VITALS: BP 120/68
== END 2022-10-17 19:45 | disposition short-term general hospital (02) | DRG 82 ==
LOC: ER 07:39 → MEDS 10:54
PROVIDERS: Emergency Medicine; ADMIT Family Medicine
DX: S06.5XAA Traumatic subdural hemorrhage with loss of consciousness status unknown, initial encounter (principal); G92.8 Other toxic encephalopathy; N39.0 Urinary tract infection, site not specified; E87.1 Hypo-osmolality and hyponatremia; N40.0 Benign prostatic hyperplasia without lower urinary tract symptoms; Z66 Do not resuscitate; I10 Essential (primary) hypertension; E78.1 Pure hyperglyceridemia; B95.62 Methicillin resistant Staphylococcus aureus infection as the cause of diseases classified elsewhere; E78.5 Hyperlipidemia, unspecified; E11.65 Type 2 diabetes mellitus with hyperglycemia; W18.30XA Fall on same level, unspecified, initial encounter; Z20.822 Contact with and (suspected) exposure to COVID-19; Z79.84 Long term (current) use of oral hypoglycemic drugs; Z79.01 Long term (current) use of anticoagulants; Z79.899 Other long term (current) drug therapy; Z79.52 Long term (current) use of systemic steroids; Z79.51 Long term (current) use of inhaled steroids; Z87.891 Personal history of nicotine dependence; Z87.2 Personal history of diseases of the skin and subcutaneous tissue; Z98.890 Other specified postprocedural states
CPT/HCPCS: 36415; 70450; 80053; 81001; 82947; 83605; 85025; 93005; 93010; 96365; 99285-25; A9270; J1815; J1953; J3370; J7030; J7050; J7120; U0004

== ENCOUNTER → 2023-04-01 | Outpatient (CLI) | payer MEDICARE, OTHER ==
[~2023-04-01] MED LIST changes: +PREGABALIN50 MG PO; +SOAANZ20 M3 PO
== END ==
LOC: LAB 10:00 → LAB SHORT 10:00
DX: N39.0 Urinary tract infection, site not specified (principal)
CPT/HCPCS: 87086

== ENCOUNTER → 2024-01-20 | Outpatient (CLI) | payer MEDICARE, OTHER ==
[2024-01-20 10:40] LABS: BASOPHILS ABSOLUTE AUTO 0.08 K/mm3 (0.00-0.23); BASOPHILS PERCENT AUTO 1 % (0-2); EOSINOPHILS ABSOLUTE AUTO 0.24 K/mm3 (0.00-0.68); EOSINOPHILS PERCENT AUTO 3 % (0-6); Hemoglobin 14.4 g/dL (13.5-17.5); IMMATURE GRAN ABSOLUTE AUTO 0.04 K/mm3 (0.00-0.10); IMMATURE GRAN PERCENT AUTO 1 % (0-1); LYMPHOCYTES PERCENT AUTO 16 % (21-46); MONOCYTES ABSOLUTE AUTO 0.46 K/mm3 (0.16-1.47); MONOCYTES PERCENT AUTO 6 % (4-13); Mean Corpuscular HGB 31.9 pg (26.0-34.0); Mean Corpuscular HGB Conc 34.3 g/dL (31.5-36.5); Mean Corpuscular Volume 93 fL (80-100); Mean Platelet Volume 10.6 fL (9.1-12.4); NEUTROPHILS ABSOLUTE AUTO 5.33 K/mm3 (1.96-9.15); NEUTROPHILS PERCENT AUTO 73 % (41-73); Platelet Count 214 K/mm3 (150-400); RDW Coefficient Variation 12.6 % (11.7-14.2); RDW Standard Deviation 42.5 fL (35.1-46.3); Red Blood Cell Count 4.52 M/mm3 (4.30-5.90); White Blood Cell Count 7.35 K/mm3 (4.00-11.30)
[2024-01-20 10:49] LABS: Bun/Creatinine Ratio 16.3 (12.0-20.0); Creatinine, Blood 0.98 mg/dL (0.60-1.20); Potassium, Blood 4.1 mmol/L (3.5-5.5); Uric Acid, Blood 5.5 mg/dL (3.5-7.2)
== END | disposition home or self-care (01) ==
LOC: LAB 10:35 → LAB SHORT 10:35
PROVIDERS: Chiropractor
DX: M79.641 Pain in right hand (principal)
CPT/HCPCS: 80048; 84550; 85025

== ENCOUNTER 2024-02-12 08:15 | Emergency (ER) | payer MEDICARE, OTHER ==
[~2024-02-12] VITALS: Ht 182.9 cm; Wt 95.2 kg
[2024-02-12 08:34] LABS: Source, Urine Clean Catch
[2024-02-12 08:38] LABS: Appearance, Urine Clear (Clear); Bilirubin, Urine Neg (Neg); Blood, Urine Neg (Neg); Color, Urine Yellow (P-Yellow); Glucose Qualitative, Urine Neg (Neg); Ketones, Urine 1+ (Neg); Leukocyte Esterase, Urine 3+ (Neg); Nitrite, Urine Neg (Neg); Protein, Urine 2+ (Neg); Specific Gravity, Urine 1.015 (1.003-1.022); Urobilinogen, Urine NORM (Normal)
[2024-02-12 08:48] LABS: Bacteria Few /hpf; Hyaline Casts 0-2 /lpf (0-2); Mucus Light (0-Heavy); Squamous Epithelial Cells Rare /hpf (Few)
[2024-02-12 08:58] LABS: BASOPHILS ABSOLUTE AUTO 0.09 K/mm3 (0.00-0.23); BASOPHILS PERCENT AUTO 1 % (0-2); EOSINOPHILS ABSOLUTE AUTO 0.37 K/mm3 (0.00-0.68); EOSINOPHILS PERCENT AUTO 4 % (0-6); Hematocrit 37.9 % (37.0-53.0); Hemoglobin 13.4 g/dL (13.5-17.5); IMMATURE GRAN ABSOLUTE AUTO 0.06 K/mm3 (0.00-0.10); IMMATURE GRAN PERCENT AUTO 1 % (0-1); LYMPHOCYTES ABSOLUTE AUTO 1.14 K/mm3 (0.84-5.20); LYMPHOCYTES PERCENT AUTO 11 % (21-46); MONOCYTES PERCENT AUTO 8 % (4-13); Mean Corpuscular HGB 32.6 pg (26.0-34.0); Mean Corpuscular HGB Conc 35.4 g/dL (31.5-36.5); Mean Corpuscular Volume 92 fL (80-100); Mean Platelet Volume 10.8 fL (9.1-12.4); NEUTROPHILS ABSOLUTE AUTO 7.69 K/mm3 (1.96-9.15); NEUTROPHILS PERCENT AUTO 76 % (41-73); Platelet Count 232 K/mm3 (150-400); RDW Coefficient Variation 12.2 % (11.7-14.2); Red Blood Cell Count 4.11 M/mm3 (4.30-5.90); White Blood Cell Count 10.15 K/mm3 (4.00-11.30)
[2024-02-12 09:24] LABS: Albumin, Blood 3.1 g/dL (3.4-5.0); Albumin/Globulin Ratio 0.9 (0.8-1.8); Bilirubin, Total 0.9 mg/dL (0.1-1.0); Bun/Creatinine Ratio 17.2 (12.0-20.0); Calcium, Blood 8.8 mg/dL (8.5-10.1); Creatinine, Blood 0.87 mg/dL (0.60-1.20); Globulin, Blood 3.4 g/dL (2.2-4.0); Potassium, Blood 4.2 mmol/L (3.5-5.5); Total Protein, Blood 6.5 g/dL (6.4-8.2)
[2024-02-12] MEDS ORDERED: CEPH500 PO (09:40)
[2024-02-12 10:38] VITALS: BP 124/62
== END 2024-02-12 10:54 | disposition home or self-care (01) ==
LOC: ER 08:15
PROVIDERS: Emergency Medicine
DX: M25.511 Pain in right shoulder (principal); G89.29 Other chronic pain; R53.81 Other malaise; N39.0 Urinary tract infection, site not specified; E11.9 Type 2 diabetes mellitus without complications; I10 Essential (primary) hypertension; Z79.52 Long term (current) use of systemic steroids; Z79.84 Long term (current) use of oral hypoglycemic drugs; Z79.899 Other long term (current) drug therapy
CPT/HCPCS: 73030; 80053; 81001; 85025; 87086; 99284-25

== ENCOUNTER 2024-04-08 13:30 | Emergency (ER) | payer OTHER, MEDICARE ==
[~2024-04-08] VITALS: Ht 182.9 cm; Wt 108.9 kg
[~2024-04-08 13:30] MED LIST changes: +CEPH500 PO
[2024-04-08 13:57] LABS: BASOPHILS ABSOLUTE AUTO 0.06 K/mm3 (0.00-0.23); BASOPHILS PERCENT AUTO 1 % (0-2); EOSINOPHILS ABSOLUTE AUTO 0.28 K/mm3 (0.00-0.68); EOSINOPHILS PERCENT AUTO 3 % (0-6); Hemoglobin 13.5 g/dL (13.5-17.5); IMMATURE GRAN ABSOLUTE AUTO 0.06 K/mm3 (0.00-0.10); IMMATURE GRAN PERCENT AUTO 1 % (0-1); LYMPHOCYTES ABSOLUTE AUTO 1.52 K/mm3 (0.84-5.20); LYMPHOCYTES PERCENT AUTO 18 % (21-46); MONOCYTES ABSOLUTE AUTO 0.54 K/mm3 (0.16-1.47); MONOCYTES PERCENT AUTO 6 % (4-13); Mean Corpuscular HGB 31.5 pg (26.0-34.0); Mean Corpuscular HGB Conc 33.8 g/dL (31.5-36.5); Mean Corpuscular Volume 94 fL (80-100); Mean Platelet Volume 10.6 fL (9.1-12.4); NEUTROPHILS ABSOLUTE AUTO 6.06 K/mm3 (1.96-9.15); NEUTROPHILS PERCENT AUTO 71 % (41-73); Platelet Count 263 K/mm3 (150-400); RDW Coefficient Variation 12.3 % (11.7-14.2); RDW Standard Deviation 42.5 fL (35.1-46.3); Red Blood Cell Count 4.28 M/mm3 (4.30-5.90); White Blood Cell Count 8.52 K/mm3 (4.00-11.30)
[2024-04-08 14:16] LABS: Albumin, Blood 3.5 g/dL (3.4-5.0); Bilirubin, Total 0.4 mg/dL (0.1-1.0); Bun/Creatinine Ratio 23.4 (12.0-20.0); Calcium, Blood 9.4 mg/dL (8.5-10.1); Creatinine, Blood 0.86 mg/dL (0.60-1.20); Globulin, Blood 3.4 g/dL (2.2-4.0); Potassium, Blood 4.3 mmol/L (3.5-5.5); Total Protein, Blood 6.9 g/dL (6.4-8.2)
[2024-04-08 15:04] LABS: Source, Urine Clean Catch
[2024-04-08 15:12] LABS: Appearance, Urine Clear (Clear); Bilirubin, Urine Neg (Neg); Blood, Urine Neg (Neg); Color, Urine Yellow (P-Yellow); Glucose Qualitative, Urine Neg (Neg); Ketones, Urine Neg (Neg); Leukocyte Esterase, Urine 2+ (Neg); Nitrite, Urine Neg (Neg); Protein, Urine Neg (Neg); Specific Gravity, Urine 1.015 (1.003-1.022); Urobilinogen, Urine NORM (Normal)
[2024-04-08 15:22] LABS: Bacteria Few /hpf; Red Blood Cells, Urine Not Seen /hpf (0-2); Squamous Epithelial Cells Not Seen /hpf (Few)
[2024-04-08 16:45] VITALS: BP 154/99
== END 2024-04-08 17:03 | disposition home or self-care (01) ==
LOC: ER 13:30
PROVIDERS: Physician Assistant
DX: Z04.3 Encounter for examination and observation following other accident (principal); E11.9 Type 2 diabetes mellitus without complications; I10 Essential (primary) hypertension; Z79.84 Long term (current) use of oral hypoglycemic drugs; Z79.52 Long term (current) use of systemic steroids; Z79.899 Other long term (current) drug therapy
CPT/HCPCS: 70450; 80053; 81001; 85025; 87086; 93005; 93010; 99285-25

== ENCOUNTER → 2024-07-12 | Outpatient (CLI) | payer MEDICARE, OTHER ==
[2024-07-12 11:51] LABS: BASOPHILS ABSOLUTE AUTO 0.09 K/mm3 (0.00-0.23); BASOPHILS PERCENT AUTO 1 % (0-2); EOSINOPHILS ABSOLUTE AUTO 0.26 K/mm3 (0.00-0.68); EOSINOPHILS PERCENT AUTO 3 % (0-6); Hematocrit 38.8 % (37.0-53.0); Hemoglobin 13.3 g/dL (13.5-17.5); IMMATURE GRAN ABSOLUTE AUTO 0.03 K/mm3 (0.00-0.10); IMMATURE GRAN PERCENT AUTO 0 % (0-1); LYMPHOCYTES ABSOLUTE AUTO 1.33 K/mm3 (0.84-5.20); LYMPHOCYTES PERCENT AUTO 18 % (21-46); MONOCYTES ABSOLUTE AUTO 0.51 K/mm3 (0.16-1.47); MONOCYTES PERCENT AUTO 7 % (4-13); Mean Corpuscular HGB 31.4 pg (26.0-34.0); Mean Corpuscular HGB Conc 34.3 g/dL (31.5-36.5); Mean Corpuscular Volume 92 fL (80-100); Mean Platelet Volume 10.7 fL (9.1-12.4); NEUTROPHILS ABSOLUTE AUTO 5.36 K/mm3 (1.96-9.15); NEUTROPHILS PERCENT AUTO 71 % (41-73); Platelet Count 238 K/mm3 (150-400); RDW Coefficient Variation 12.9 % (11.7-14.2); RDW Standard Deviation 42.4 fL (35.1-46.3); Red Blood Cell Count 4.24 M/mm3 (4.30-5.90); White Blood Cell Count 7.58 K/mm3 (4.00-11.30)
[2024-07-12 12:01] LABS: Albumin, Blood 3.7 g/dL (3.4-5.0); Albumin/Globulin Ratio 1.1 (0.8-1.8); Bilirubin, Total 0.4 mg/dL (0.1-1.0); Bun/Creatinine Ratio 21.6 (12.0-20.0); Calcium, Blood 8.6 mg/dL (8.5-10.1); Creatinine, Blood 1.11 mg/dL (0.60-1.20); Globulin, Blood 3.4 g/dL (2.2-4.0); Potassium, Blood 4.7 mmol/L (3.5-5.5); Total Protein, Blood 7.1 g/dL (6.4-8.2)
== END ==
LOC: LAB SHORT 11:45 → LAB 11:45
PROVIDERS: Physician Assistant Medical
DX: R73.9 Hyperglycemia, unspecified (principal)
CPT/HCPCS: 80053; 85025

== ENCOUNTER → 2025-03-23 | Outpatient (CLI) | payer MEDICARE, OTHER ==
[2025-03-23 09:18] LABS: Source, Urine Clean Catch
[2025-03-23 12:58] LABS: Bilirubin, Urine Neg (Neg); Color, Urine Yellow (P-Yellow); Glucose Qualitative, Urine Neg (Neg); Ketones, Urine Neg (Neg); Leukocyte Esterase, Urine 3+ (Neg); Protein, Urine 1+ (Neg); Specific Gravity, Urine 1.020 (1.003-1.022); Urobilinogen, Urine NORM (Normal)
[2025-03-23 13:07] LABS: Red Blood Cells, Urine 0-2 /hpf (0-2)
== END ==
LOC: LAB 06:00 → LAB SHORT 06:00
PROVIDERS: Family Medicine
DX: R41.89 Other symptoms and signs involving cognitive functions and awareness (principal)
CPT/HCPCS: 81001; 87086

== ENCOUNTER → 2025-06-01 | Outpatient (CLI) | payer MEDICARE, OTHER ==
[2025-06-01 21:05] LABS: Creatinine, Urine Random 83.3 mg/dL (27.00-270.00); Microalbumin, Random Urine 37.3 mg/L (0.000-20.000)
== END ==
LOC: LAB SHORT 11:00 → LAB 11:00
PROVIDERS: Family Medicine
DX: E11.65 Type 2 diabetes mellitus with hyperglycemia (principal)
CPT/HCPCS: 82043; 82570